=== PATIENT | male | born 1970 | race Caucasian/White ===

== ENCOUNTER 2019-06-09 08:33 | Emergency (ER) | payer OTHER ==
[~2019-06-09] VITALS: Ht 175.3 cm; Wt 117.9 kg
[2019-06-09 08:37] VITALS: BP 153/89
--- NOTE | 2019-06-09 09:09 | Emergency Room Report ---
History of Present Illness General Chief Complaint: Pain Source: Patient Present Illness HPI 49-year-old male with chronic sciatica pain reports worsening pain since last week. Patient's pain is right-sided lumbar spine radiating into posterior right upper thigh., Worsens with movement. Was saw at [facility] and given for Percocet on Saturday. Patient has scheduled follow-up with pain management in 6 days. Patient states that he has 5 mm protrusion of disc in lumbar spine unsure if its L1-L2. Of note patient's medical history significant for IgA neuropathy so patient unable to take high dose NSAIDs. Patient however notes taking 600 mg ibuprofen as needed for pain. Patient states it does not help. Allergies: Coded Allergies: AMPICILLIN (Verified Allergy, Unknown, 06/09/19) Nursing Documentation-[facility] Past Medical History: No History, Except For Physical Exam Vital Signs Date Time Temp Pulse Resp B/P (MAP) Pulse Ox O2 Delivery O2 Flow Rate FiO2 06/09/19 08:37 97.9 100 20 153/89 98 Room Air Sp02 EP Interpretation: reviewed, normal General Appearance: no apparent distress, alert, non-toxic Head: normocephalic, atraumatic Neck: supple/symm/no masses Respiratory: lungs clear, normal breath sounds, speaking full sentences Cardiovascular #1: regular rate, rhythm, normal capillary refill Cardiovascular #2: 2+ radial (R), 2+ radial (L) Gastrointestinal: non tender, soft, non-distended Rectal: deferred, other - Normal sensation in perianal area Musculoskeletal: normal range of motion, non-tender, other - Tenderness to lower spine and buttocks. No decrease in sensation. Neurologic: alert, motor strength/tone normal, sensory intact, grossly normal Medical Decision Making ER Course 49-year-old male with chronic sciatica pain presents with worsening back pain has follow-up in 6 days. Differential includes: Sciatica, lumbar stenosis, epidural abscess, cauda equina syndrome. No red flags concerning for spinal stenosis, cauda equina syndrome, epidural abscess given patient has no fever, no numbness, no tingling, no incontinence or bowel changes. Patient given pain medication and Lidoderm patch at this time. Patient given Rx for Percocet until patient can see pain management doctor. Last Vital Signs Date Time Temp Pulse Resp B/P (MAP) Pulse Ox O2 Delivery O2 Flow Rate FiO2 06/09/19 08:37 97.9 100 20 153/89 (110) 98 Room Air Disposition: HOME, SELF-CARE Condition: Stable Scripts Oxycodone/Acetaminophen 5-325* (PERCOCET 5-325 MG TABLET*) 1 Each Tablet 1 TAB ORAL Q12HR PRN for For Pain, #6 TAB 0 Refills Prov: Cooper Flaherty M.D. 06/09/19 Cooper Flaherty M.D. Jun 09, 2019 09:09
[2019-06-09] MEDS ORDERED: PERCOCET 5-3251 EACH ORAL (09:13)
[2019-06-09] MEDS ORDERED: oxyCODONE HCL/Acetaminophen 5/325mg PO ONE (09:15)
[2019-06-09] MEDS ORDERED: Ketorolac 30mg Inj IM ONE (09:15)
[2019-06-09 09:26] VITALS: BP 145/90
== END 2019-06-09 09:26 | disposition home or self-care (01) ==
LOC: EMR 08:58
DX: M54.5 Low back pain (principal); Z88.0 Allergy status to penicillin
CPT/HCPCS: 96372; J1885; Z7502; 99283

== ENCOUNTER 2020-01-08 11:47 | Emergency (ER) | payer MEDICAID, OTHER ==
[~2020-01-08] VITALS: Ht 175.3 cm; Wt 124.7 kg
[~2020-01-08 11:47] MED LIST: PERCOCET 5-3251 EACH ORAL
--- NOTE | 2020-01-08 12:05 | NUR ---
ED Nurse Note: Pt went to ER via w/c d/t severe lower back pain 04/30, stated he had a prev stay at a SNF and tested (+) for COVID 19 x 3 weeks ago and now was tested (-) last Saturday. Pt aslo stated that he is "trying to get back to SNF but was told need hospitalization for that". VSS, on RA, afebrile on triage. Placed on bed.
--- NOTE | 2020-01-08 12:19 | NUR ---
ED Nurse Note: ERMD at bedside.
[2020-01-08] MEDS ORDERED: Morphine Sulfate 2mg/ml Inj(IV/IM USE ONLY) IM ONE (12:30)
[2020-01-08 12:41] VITALS: BP 151/96
--- NOTE | 2020-01-08 13:08 | NUR ---
PAEDIATRICIAN NOTE SW spoke w/ pt over the phone. PT presents as A&O 4x and cooperative. PT reports he was at SNF until [facility] [place] [facility] [place] then he is currently paying his own hotel at this time. Pt has hx of Depression and PTSD and is currently taking Wellbutrin. Pt reports his covid result was negative on the past Saturday. Pt reports he has been trying to find a housing facility but it has been unsuccessful. Pt's family will cover his housing. SW spoke w/ the independent correctional managerSelina and confirmed there is a bed available for wheelchair bound. Pt spoke w/ the independent correctional manager, Selina [phone]. Pt is currently communicating w/ his mother for housing payment. Awaiting for call back from Selina.
--- NOTE | 2020-01-08 13:52 | NUR ---
DATA SOFTWARE ENGINEER NOTE SW spoke w/ pt and confirmed he is wiling to be placed at [facility]. Per pt, he spoke w/ Selina again and confirmed that he can be discharged to [facility]. SW left a vm to [facility] for call back. Awaiting for call back from [facility].
--- NOTE | 2020-01-08 13:57 | NUR ---
TRAFFIC OPERATOR NOTE SW spoke w/ Selina [phone] and confirmed pt is accepted at [facility] [address] , [place] [address].
--- NOTE | 2020-01-08 14:22 | NUR ---
PATIENT WILL BE DISCHARGED TO [facility] AT [address] [place] [address].ADJUNCT LATIN PROFESSOR [phone]. I SPOKE TO GUILLAUME INSTRUCTED HER PATIENT WILL BE COMING BY TAXI
[2020-01-08] MEDS ORDERED: PERCOCET 5-3251 EACH ORAL (14:23)
--- NOTE | 2020-01-08 14:24 | NUR ---
[employer] V[employer]CHER AND PAIN MEDS WILL BE PROVIDED
--- NOTE | 2020-01-08 15:12 | NUR ---
PAIN MEDS PROVIDED TO THE PATIENT TO TAKE HOME
[2020-01-08 15:43] VITALS: BP 110/78
--- NOTE | 2020-01-08 15:43 | NUR ---
ER DISCHARGE NOTE: Patient is cleared to be discharged per ERMD, pt is aox4, on room air, with stable vital signs. pt was given dc and prescription instructions, pt was able to verbalize understanding, pt id band removed. pt is able to ambulate with steady gait. pt took all belongings.
--- NOTE | 2020-01-09 16:12 | Emergency Room Report ---
History of Present Illness General Chief Complaint: Lower Back Pain or Injury Source: Patient Present Illness HPI 49-year-old male presents for evaluation of back pain. States he has chronic back pain for years. Has run out of medication a few days ago. States he cannot get out of his wheelchair because of the pain. Is asking to be admitted to a prison facility. States he was residing in one previously but was subsequently discharged and does not have a place to stay at this time. Pain is throbbing, 10 out of 10, nonradiating. Denies bowel or bladder incontinence. Denies leg or motor tenderness. No other aggravating relieving factors. Denies any other associated symptoms Allergies: Coded Allergies: AMPICILLIN (Verified Allergy, Unknown, 06/09/19) GABAPENTIN (Verified Allergy, Unknown, 01/08/20) COVID-19 Screening Contact w/high risk pt: No Recent Travel to affected area: No Experienced COVID-19 symptoms?: No COVID-19 Testing performed WAREHOUSE ORDER SELECTOR: No Patient History Past Medical History: HTN Past Surgical History: none Pertinent Family History: none Social History: Denies: smoking, alcohol use, drug use Immunizations: UTD Reviewed Nursing Documentation: PMH: Agreed; PSxH: Agreed Nursing Documentation-PMH Hx Hypertension: Yes Review of Systems All Other Systems: negative except mentioned in HPI Physical Exam Vital Signs Date Time Temp Pulse Resp B/P (MAP) Pulse Ox O2 Delivery O2 Flow Rate FiO2 01/08/20 12:00 98.4 111 22 151/96 (114) 98 Room Air Sp02 EP Interpretation: reviewed, normal General Appearance: no apparent distress, alert, GCS 15, non-toxic, obese Head: normocephalic, atraumatic Eyes: bilateral eye normal inspection, bilateral eye PERRL ENT: hearing grossly normal, normal pharynx, no angioedema, normal voice Neck: full range of motion, supple/symm/no masses Respiratory: chest non-tender, lungs clear, normal breath sounds, speaking full sentences Cardiovascular #1: regular rate, rhythm, no edema Cardiovascular #2: 2+ carotid (R), 2+ carotid (L), 2+ radial (R), 2+ radial (L) , 2+ dorsalis pedis (R), 2+ dorsalis pedis (L) Gastrointestinal: normal bowel sounds, non tender, soft, non-distended, no guarding, no rebound Rectal: deferred Genitourinary: normal inspection, no CVA tenderness Musculoskeletal: back normal, normal range of motion, gait/station normal, non- tender Neurologic: alert, motor strength/tone normal, oriented x3, sensory intact, responsive, speech normal Psychiatric: judgement/insight normal, memory normal, mood/affect normal, no suicidal/homicidal ideation Reflexes: 3+ bicep (R), 3+ bicep (L), 3+ tricep (R), 3+ tricep (L), 3+ knee (R) , 3+ knee (L) Skin: no rash Lymphatic: no adenopathy Medical Decision Making Homeless Attestation I, The treating physician Dr. Higgins, have assessed and agrees that patient is medically stable for discharge to an outpatient disposition. Diagnostic Impression: Primary Impression: Back pain Qualified Codes: M54.5 - Low back pain; G89.29 - Other chronic pain Additional Impression: Homelessness ER Course 49-year-old male presents with back pain. Requesting hospitalization for assisted living placement After initial history and physical I ordered pain meds. I spoke to social worker palliative care. Patient does not require hospitalization for any medical purpose. supervisor [employer] was able to fill the tape placement to a assisted living facility. 3 day course of Percocet was provided to the patient. Diagnosisback pain, homelessness Patient provided taxi voucher to assisted living facility. Follow-up with PMD. Return to ED if symptoms recur or worsen Last Vital Signs Date Time Temp Pulse Resp B/P (MAP) Pulse Ox O2 Delivery O2 Flow Rate FiO2 01/08/20 15:43 98.1 84 19 110/78 99 Room Air Status: improved Disposition: ASSISTED LIVING Condition: Stable Scripts Oxycodone/Acetaminophen 5-325* (PERCOCET 5-325 MG TABLET*) 1 Each Tablet 1 TAB ORAL Q6H PRN for For Pain, #12 TAB 0 Refills Prov: Remberto Higgins MD 01/08/20 Referrals: [facility]ERR[facility] (PCP) Patient Instructions: Back Pain, Adult Remberto Higgins MD Jan 09, 2020 16:12
== END 2020-01-08 15:43 | disposition home or self-care (01) ==
LOC: EMR 12:26
DX: G89.29 Other chronic pain (principal); M54.5 Low back pain; I10 Essential (primary) hypertension; Z59.0 Homelessness; Z88.6 Allergy status to analgesic agent; Z88.8 Allergy status to other drugs, medicaments and biological substances
CPT/HCPCS: 96372; J2270; Z7502; 99283